=== PATIENT | male | born 1950 | race Caucasian/White ===

== ENCOUNTER → 2016-12-19 | Outpatient (CLI) | payer MEDICARE ==
[2016-12-19 17:33] LABS: Anion Gap 10 mmol/L; Blood Urea Nitrogen 32 mg/dL (9-20); Carbon Dioxide 27 mmol/L (22-30); Chloride 107 mmol/L (98-107); Non-African American GFR(MDRD) >60 (>60 ml/min/1.73 sqM); Potassium 4.7 mmol/L (3.5-5.1); Sodium 144 mmol/L (137-145)
== END | disposition home or self-care (01) ==
LOC: LABWHC1 17:02
PROVIDERS: ATTEND Nurse Practitioner Adult Health
DX: I48.2 Chronic atrial fibrillation (principal); Z51.81 Encounter for therapeutic drug level monitoring
CPT/HCPCS: 36415; 80051; 82565; 83735; 84520

== ENCOUNTER → 2017-03-08 | Outpatient (CLI) | payer MEDICARE ==
[2017-03-08 12:31] LABS: CH 29.8; CHCM 33.1; HCT 47.1 % (39.0-53.0); HDW 2.49; HGB 15.7 gm/dL (13.0-17.5); MCH 30.2 pg (25.0-35.0); MCHC 33.4 g/dL (31.0-37.0); MCV 90.4 fL (80.0-100.0); Mean Platelet Volume 7.6; RBC 5.21 m/uL (4.30-5.90); RDW 14.2 % (11.5-15.5); WBC 6.5 k/uL (3.8-10.6)
[2017-03-08 12:41] LABS: Appearance,Urine Clear (Clear); Bilirubin,Urine Negative (Negative); Glucose,Urine (UA) Negative (Negative); Ketones,Urine Negative (Negative); Leukocyte Esterase,Urine Negative (Negative); Nitrite,Urine Negative (Negative); PH, Urine 5.5 (5.0-8.0); Protein,Urine Negative (Negative); Specific Gravity,Urine 1.019 (1.001-1.035); UA Billing (MACRO vs. MICRO) CHEM; Urobilinogen,Urine <2.0 mg/dL (<2.0)
[2017-03-08 13:49] LABS: ALT 42 U/L (21-72); AST 28 U/L (17-59); Alkaline Phosphatase 70 U/L (38-126); Anion Gap 11 mmol/L; Blood Urea Nitrogen 19 mg/dL (9-20); Calcium 9.7 mg/dL (8.4-10.2); Carbon Dioxide 26 mmol/L (22-30); Chloride 107 mmol/L (98-107); Cholesterol 183 mg/dL (<200); Glucose 103 mg/dL (74-99); HDL Cholesterol 61 mg/dL (40-60); Non-African American GFR(MDRD) >60 (>60 ml/min/1.73 sqM); Potassium 4.9 mmol/L (3.5-5.1); Sodium 144 mmol/L (137-145); Total Bilirubin 0.4 mg/dL (0.2-1.3); Total Protein 7.5 g/dL (6.3-8.2); Triglycerides 133 mg/dL (<150)
[2017-03-08 14:14] LABS: Prostate Specific Antigen 1.01 ng/mL (0.00-4.00)
== END ==
LOC: LABWHC1 11:46
PROVIDERS: ATTEND Family Medicine
DX: Z00.00 Encounter for general adult medical examination without abnormal findings (principal); E78.5 Hyperlipidemia, unspecified; N40.0 Benign prostatic hyperplasia without lower urinary tract symptoms; Z79.899 Other long term (current) drug therapy
CPT/HCPCS: 36415; 80053; 80061; 81003; 83735; 84153; 84443; 85027

== ENCOUNTER → 2017-05-04 | Outpatient (CLI) | payer MEDICARE ==
[2017-05-04 18:19] LABS: Anion Gap 9 mmol/L; Blood Urea Nitrogen 21 mg/dL (9-20); Calcium 9.4 mg/dL (8.4-10.2); Carbon Dioxide 26 mmol/L (22-30); Chloride 104 mmol/L (98-107); Glucose 98 mg/dL (74-99); Magnesium 1.8 mg/dL (1.6-2.3); Non-African American GFR(MDRD) >60 (>60 ml/min/1.73 sqM); Sodium 139 mmol/L (137-145)
== END | disposition home or self-care (01) ==
LOC: LABWHC1 17:31
PROVIDERS: ATTEND Internal Medicine Clinical Cardiac Electrophysiology
DX: I10 Essential (primary) hypertension (principal); I48.1 Persistent atrial fibrillation
CPT/HCPCS: 36415; 80048; 83735

== ENCOUNTER → 2017-10-26 | Outpatient (CLI) | payer MEDICARE ==
[2017-10-26 15:04] LABS: Calcium 9.8 mg/dL (8.4-10.2); Potassium 4.8 mmol/L (3.5-5.1)
== END | disposition home or self-care (01) ==
LOC: LABWHC1 14:11
PROVIDERS: ATTEND Internal Medicine Clinical Cardiac Electrophysiology
DX: I48.1 Persistent atrial fibrillation (principal); I10 Essential (primary) hypertension
CPT/HCPCS: 36415; 80048; 83735

== ENCOUNTER → 2017-11-14 | Outpatient (CLI) | payer MEDICARE ==
[2017-11-14 10:05] LABS: ALT 35 U/L (21-72); AST 30 U/L (17-59); Anion Gap 9 mmol/L; Blood Urea Nitrogen 20 mg/dL (9-20); Calcium 9.5 mg/dL (8.4-10.2); Carbon Dioxide 29 mmol/L (22-30); Chloride 103 mmol/L (98-107); Cholesterol 188 mg/dL (<200); Glucose 118 mg/dL (74-99); HDL Cholesterol 53 mg/dL (40-60); LDL Cholesterol,Calculated 106 mg/dL (0-99); Magnesium 1.9 mg/dL (1.6-2.3); Potassium 4.5 mmol/L (3.5-5.1); Sodium 141 mmol/L (137-145); Triglycerides 143 mg/dL (<150)
== END ==
LOC: LABWHC1 09:27
PROVIDERS: ATTEND Nurse Practitioner Adult Health
DX: E78.2 Mixed hyperlipidemia (principal); I48.1 Persistent atrial fibrillation; Z51.81 Encounter for therapeutic drug level monitoring
CPT/HCPCS: 36415; 80048; 80061; 83735; 84450; 84460

== ENCOUNTER → 2018-05-25 | Outpatient (CLI) | payer MEDICARE ==
[2018-05-25 16:14] LABS: Calcium 9.7 mg/dL (8.4-10.2); Magnesium 2.3 mg/dL (1.6-2.3)
[2018-05-25 16:15] LABS: Potassium 4.5 mmol/L (3.5-5.1)
== END | disposition home or self-care (01) ==
LOC: LABWHC1 15:21
PROVIDERS: ATTEND Internal Medicine Clinical Cardiac Electrophysiology
DX: I48.91 Unspecified atrial fibrillation (principal); I10 Essential (primary) hypertension; E78.5 Hyperlipidemia, unspecified
CPT/HCPCS: 36415; 80048; 80061; 83735

== ENCOUNTER → 2018-11-30 | Outpatient (CLI) | payer MEDICARE ==
[2018-11-30 08:40] LABS: HCT 47.4 % (39.0-53.0); HGB 15.2 gm/dL (13.0-17.5); MCH 29.1 pg (25.0-35.0); MCHC 32.1 g/dL (31.0-37.0); MCV 90.8 fL (80.0-100.0); Mean Platelet Volume 7.2; Platelet Count 181 k/uL (150-450); RBC 5.22 m/uL (4.30-5.90); RDW 13.4 % (11.5-15.5); WBC 6.2 k/uL (3.8-10.6)
[2018-11-30 08:47] LABS: INR 1.1 (<1.2); Prothrombin Time 11.8 sec (9.0-12.0)
[2018-11-30 17:09] LABS: Anion Gap 7.8 mmol/L (4.00-12.00); Calcium 9.7 mg/dL (8.7-10.3); Carbon Dioxide 24.2 mmol/L (21.6-31.8); Magnesium 1.7 mg/dL (1.5-2.4); Potassium 4.6 mmol/L (3.5-5.5)
== END | disposition home or self-care (01) ==
LOC: LABWHC1 08:02
PROVIDERS: ATTEND Internal Medicine Clinical Cardiac Electrophysiology
DX: I48.91 Unspecified atrial fibrillation (principal); I10 Essential (primary) hypertension; E78.5 Hyperlipidemia, unspecified
CPT/HCPCS: 36415; 80048; 80061; 83735; 84450; 84460; 85027; 85610

== ENCOUNTER → 2019-01-28 | Outpatient (CLI) | payer MEDICARE ==
[2019-01-28 10:32] LABS: Potassium 5.2 mmol/L (3.5-5.1)
== END | disposition home or self-care (01) ==
LOC: LABPAT 09:16
PROVIDERS: ATTEND Internal Medicine Clinical Cardiac Electrophysiology
DX: Z01.812 Encounter for preprocedural laboratory examination (principal); I48.1 Persistent atrial fibrillation
CPT/HCPCS: 80051; 82565; 82947; 84520

== ENCOUNTER → 2019-01-31 | Day surgery (SDC) | payer MEDICARE ==
[2019-01-25 14:13] VITALS: BMI 26.9
[~2019-01-31] MED LIST: SODIUM CHLORIDE 0.9% 1,000 ML IV SCH
[2019-01-31 06:49] VITALS: BP 141/86; PULSE 57; RESP 18; TEMP 98.1
--- NOTE | 2019-01-31 08:24 | P.PCN ---
Preoperative Diagnosis: Diagnosis Persistent symptomatic atrial fibrillation, failed dofetilide 375 g twice daily Patient brought in for electrical cardioversion since he was symptomatic with atrial fibrillation Twelve-lead ECG prior to the cardioversion showed a the patient had converted to sinus rhythm Lead ECG shows sinus rhythm normal MA QRS normal ST segments QT interval 480 ms, absolute Patient is feeling well today he feels better Suggest Atrial current medications without any changes including Xarelto 20 mg by mouth daily number dofetilide 375 g twice daily, beta blockers spironolactone Slow- Mag Plan Since the patient is symptomatic today's electrical cardioversion was canceled but I have recommended that he proceed with an A. fib ablation When he is back lipid performed a pulmonary vein isolation his atrium was significantly enlarged at about 6 cm and the esophagus was very difficult to deflected off safely. Therefore pulmonary isolation was left in complete for risk of injury to the esophagus I would recommend that he proceed with cryoablation to complete the pulmonary vein isolation now and perform linear ablation at the roof I plan to continue dofetilide maintains sinus rhythm since he is quite symptomatic during atrial fibrillation
== END | disposition home or self-care (01) ==
LOC: CATHEP 06:24
PROVIDERS: ATTEND Internal Medicine Clinical Cardiac Electrophysiology
DX: I48.1 Persistent atrial fibrillation (principal); E78.5 Hyperlipidemia, unspecified; I10 Essential (primary) hypertension; I73.9 Peripheral vascular disease, unspecified; I49.5 Sick sinus syndrome; Z51.81 Encounter for therapeutic drug level monitoring; Z82.49 Family history of ischemic heart disease and other diseases of the circulatory system; Z72.0 Tobacco use; Z79.01 Long term (current) use of anticoagulants; Z79.899 Other long term (current) drug therapy; Z53.8 Procedure and treatment not carried out for other reasons

== ENCOUNTER 2019-03-28 09:29 | Day surgery (SDC) | payer MEDICARE ==
[2019-03-22 10:33] VITALS: BMI 26.6
[2019-03-28] MEDS: SODIUM CHLORIDE 0.9% 1,000 ML IV SCH (10:06)
[2019-03-28 10:14] LABS: African American GFR (CKD) >90 (>60 ml/min/1.73 sqM); Anion Gap 9 mmol/L; Blood Urea Nitrogen 18 mg/dL (9-20); Calcium 9.4 mg/dL (8.4-10.2); Carbon Dioxide 24 mmol/L (22-30); Chloride 107 mmol/L (98-107); Glucose 130 mg/dL (74-99); Non-African American GFR(CKD) 85 (>60 ml/min/1.73 sqM); Potassium 4.5 mmol/L (3.5-5.1); Sodium 140 mmol/L (137-145)
[2019-03-28 10:18] LABS: Basophils # (A) 0.1 k/uL (0-0.2); Basophils % (A) 1 %; Eosinophils # (A) 0.6 k/uL (0-0.7); Eosinophils % (A) 11 %; HCT 45.9 % (39.0-53.0); HGB 15.5 gm/dL (13.0-17.5); Lymphocytes # (A) 1.5 k/uL (1.0-4.8); Lymphocytes % (A) 27 %; MCH 30.4 pg (25.0-35.0); MCHC 33.9 g/dL (31.0-37.0); MCV 89.6 fL (80.0-100.0); Mean Platelet Volume 7.6; Monocytes # (A) 0.4 k/uL (0-1.0); Monocytes % (A) 8 %; Neutrophils # (A) 2.8 k/uL (1.3-7.7); Neutrophils % (A) 51 %; Platelet Count 171 k/uL (150-450); RBC 5.12 m/uL (4.30-5.90); RDW 15.7 % (11.5-15.5); WBC 5.5 k/uL (3.8-10.6)
[2019-03-28] MEDS ORDERED: FUROSEMIDE 10 MG/ML 2 ML VIAL ONE (10:41)
[2019-03-28] MEDS ORDERED: SUCCINYLCHOLINE CHLORIDE 100 MG/5 ML SYR IV ONE (10:41)
[2019-03-28] MEDS ORDERED: ONDANSETRON 4 MG/2 ML VIAL ONE (10:41)
[2019-03-28] MEDS ORDERED: HEPARIN SODIUM,PORCINE 5,000 UNIT/ML 1 ML VIAL ONE (10:41)
[2019-03-28] MEDS ORDERED: ATROPINE SULFATE 0.1 MG/ML 10ML SYRINGE ONE (10:41)
[2019-03-28] MEDS ORDERED: PROTAMINE SULFATE 10 MG/ML 5 ML VIAL IV ONE ×2 (10:41→15:45)
[2019-03-28] MEDS ORDERED: GLYCOPYRROLATE 0.2 MG/ML 2 ML VIAL ONE (10:41)
[2019-03-28] MEDS ORDERED: MIDAZOLAM 2 MG/2 ML VIAL ONE (10:41)
[2019-03-28] MEDS ORDERED: PROPOFOL 10 MG/ML 20 ML VIAL IV ONE (10:41)
[2019-03-28] MEDS ORDERED: PHENYLEPHRINE-0.9% NACL SYG 1 MG/10 ML SYRINGE ONE (10:41)
[2019-03-28] MEDS ORDERED: fentaNYL (PF) 50 MCG/ML 2 ML AMP ONE (10:41)
[2019-03-28] MEDS ORDERED: ISOPROTERENOL 250 MCG/1.25 ML SYR IV ONE (10:41)
[2019-03-28] MEDS ORDERED: HEPARIN SOD,PORK IN 0.45% NACL 25,000 UNIT in 0.45% NACL 1 250ML.BAG IV ONE (11:18)
--- NOTE | 2019-03-28 11:49 | HP ---
HISTORY AND PHYSICAL Don Pelaez is a 68-year-old male patient who has a history of persistent atrial fibrillation and has undergone atrial fibrillation ablation over 7 to 8 years back. At that time, we were unable to isolate the left-sided veins on account of the proximity of the esophagus. Esophageal deflection was very difficult. He had an extremely left- sided esophagus. Tip of the posterior wall of the left-sided veins was not ablated to avoid risk of the esophageal injury. He was treated with dofetilide and did very well for many, many years. He started having episodes of palpitations and subsequently had symptomatic atrial fibrillation with fatigue. He underwent electrical cardioversion for this. He has been brought back for an atrial fibrillation ablation with PVI using cryoablation and a diagnostic EP study thereafter for atrial tachycardia. He does have mild sinus bradycardia with underlying chronotropic incompetence, but does not have any significant symptoms in sinus rhythm. He feels well during sinus rhythm. He is on dofetilide. His absolute QT interval is 487 milliseconds. PAST HISTORY: Past history of dyslipidemia and hypertension. He is a former smoker. His 2D echo has shown significantly dilated left atrium with preserved LV systolic function. He has also had nonsustained ventricular tachycardia, a 4-beat run, on Holter monitor as well as mild sick sinus syndrome. His stress test in the past has been within normal limits. MEDICATIONS: His medications include Slow-Mag, Flomax, dofetilide 375 mcg twice daily, Aldactone, , low-dose atenolol. ALLERGIES: No known drug allergies. REVIEW OF SYSTEMS: He denies any fever, chills, or rigors. He denies any cough, expectoration, phlegm pneumonitis, bronchitis. No urinary tract infection. No dysuria. No abdominal pain. He does complain of dizziness upon standing quickly, but no loss of consciousness. No chest discomfort. No undue shortness of breath. No hematuria or dysuria. No strokes, seizures. No skin lesions. No musculoskeletal complaints. PHYSICAL EXAMINATION: On examination, his blood pressure is 137/80 mmHg. Heart rates are in the 50s, sinus mechanism. Head and neck examination is normal. No JVD. Breath sounds are clear. No rhonchi, no crackles. Heart sounds show normal S1, normal S2 with a soft ejection systolic murmur. Abdomen is soft, nontender. Extremities are warm. No edema. IMPRESSION: 1. History of persistent atrial fibrillation now with breakthrough episodes of atrial fibrillation on dofetilide. 2. Stable from a cardiovascular standpoint. 3. Stable from medical standpoint to proceed with atrial fibrillation ablation under the general anesthesia. 4. Hypertension. He is on uninterrupted Xarelto. MMODL / IJN: [id number] /
[2019-03-28] MEDS ORDERED: LIDOCAINE 1% INJ 10MG/ML (20 ML MDV) SQ ONE (11:59)
[2019-03-28] MEDS ORDERED: HEPARIN SODIUM (1,000 UNIT/ML) 1,000 UNIT in SODIUM CHLORIDE 0.9% 1,000 ML IRRIGATION ONE (15:56)
[2019-03-28] MEDS ORDERED: IOPAMIDOL-370 100ML BTL INJ ONE (15:56)
[2019-03-28] MEDS ORDERED: HYDROcodone/APAP 5-325MG 1 EACH TAB PO PRN ×2 (16:42→18:32)
[2019-03-28] MEDS ORDERED: ACETAMINOPHEN TAB 325 MG TAB PO PRN (16:42)
--- NOTE | 2019-03-28 16:56 | P.PCN ---
Preoperative Diagnosis: Diagnosis Atrial fibrillation, symptomatic, refractory to therapy, persistent, failed dofetilide Result Successful pulmonary vein isolation of all veins using cryo-ablation Complete entrance block in all 4 veins confirmed Ablation along the left atrial roof Linear ablation along the anterior wall of the left atrium Ablation of the fossa ovalis, fractionated signals No evidence for phrenic nerve injury Esophageal deflection YES Electrical cardioversion with a synchronized shock across the chest NO Procedure details Patient was brought to the EP lab in a fasting state. Written informed consent was obtained prior to the procedure. Procedure performed under general anesthesia After initial muscle relaxant use, muscle relaxants were not given thereafter in order to assess phrenic nerve during procedure. Patient prepped and draped as per protocol Full cryo-set up with standard preparation of the cryoablation tools done. Femoral Venous access obtained on the right and left groins Venous and arterial Sheaths placed. Diagnostic catheters for the high right atrium, phrenic nerve stimulation and pacing, His bundle, RV and coronary sinus placed Intracardiac echo catheter placed. Long sheath placed in the right atrium Left and right transseptal catheterization performed under intracardiac echo guidance. Intravenous heparin with aCT above 300 Later, catheter positioning and balloon positioning in the left atrium, under intracardiac echo guidance Diagnostic EP study with Drug infusion Coronary sinus pacing and recording Baseline measurements Sinus cycle length 1224, MT interval 172, QRS 121, QT 500 Atrial pacing performed from the high right atrium and the coronary sinus RV pacing Sinus recovery 600, 540 ms were 898, 879 and 63 ms AV node Wenckebach block 650 ms Atrial extra stimulation from the high right atrium Extra stimulation from the coronary sinus Transseptal catheterization performed RA pressure 10/4/7 LA pressure 16/5/9 Transseptal catheterization performed with standard sheath. The cryoablation sheath was then placed with an over the wire exchange without any acute complications. All 4 pulmonary veins were isolated in the following sequence: Left superior followed by left inferior followed by right superior followed by right inferior The cryo-ablation balloon was placed at the os of each vein 1.5 mL of IV dye was injected to confirm an occluded vein Goal during cryoablation was to achieve complete occlusion of the pulmonary vein, achieve -30 degrees C at 30 seconds and achieve -40 degrees C at 60 seconds and a time to effect of less than 60-90 seconds, . If not the balloon was repositioned to obtain this result After completion of Cryoblation with durations from 180-240 seconds, entrance block was confirmed with the Attain circular catheter in a roving fashion around the antrum of the pulmonary veins Phrenic nerve pacing was performed from the SVC, right innominate vein area and diaphragm voltage was monitored. Diaphragmatic contractions were also monitored manually for strength of contraction. Parameter goals for each cryo freeze Complete occlusion of the appropriate vein -30 degrees C by 30 seconds -40 degrees C by 60 seconds Minimum between minus 40-55 degrees C Thaw time greater than 10 seconds Balloon visualized by intracardiac echo The esophagus was intubated. Esophageal Temperature monitoring with a CIRCA catheter formed. Esophageal deflection for hypothermia of the esophagus below 30 degrees C Left superior pulmonary vein Complete isolation, entrance block Left inferior pulmonary vein Complete isolation, entrance block Right superior pulmonary vein, during phrenic nerve pacing Complete isolation, entrance block Right inferior pulmonary vein, during phrenic nerve pacing Complete isolation, entrance block At the end of the procedure the Achieve catheter was once again used to check for entrance block Phrenic nerve stimulation was performed to confirm diaphragmatic stimulation the end of the procedure Cine fluoroscopy was performed at the very end of the procedure to confirm movement of both diaphragms with inspiration and expiration At the end of the procedure the patient was extubated Heparin was reversed Venous sheaths were removed and hemostasis assured Procedures performed (PVI - CRYO Ablation) Invasive hemodynamic monitoring while general anesthesia, right femoral arterial line for monitoring and sampling Diagnostic EP study CS pacing and recording Left and right transseptal catheterization Catheter the mapping of the tachycardia (NOT 3D mapping) Intracardiac echocardiography Pulmonary vein isolation with transseptal and comprehensive EPS, 09871 Left atrial roof line, +02100 Linear ablation along the anterior wall from the base of the left great appendage to the anterior aspect of the right superior pulmonary vein Linear ablation along the anterior septum to the fossa ovalis and then to the right inferior pulmonary vein Electrical cardioversion with a synchronized shock across the chest 05617 Drug Infusion +51645 On Isuprel with atrial extra stimulation from the coronary sinus@400\370 ms an atrial tachycardia was induced with W-shaped P waves in V1 and somewhat negative in the inferior leads Sustained but terminated spontaneously Slight irregularity and radiation in the intracardiac electrograms Cycle length of about 254 ms Likely originating in the right atrium Tachycardia spontaneously terminated before mapping could be performed
[2019-03-28] MEDS: LACTATED RINGERS 1,000 ML IV SCH (17:15)
[2019-03-28] MEDS ORDERED: ACETAMINOPHEN IV (For NPO) 1,000 MG in EMPTY BAG 1 BAG IVPB ONE (18:00)
[2019-03-28] MEDS ORDERED: HYDROcodone/APAP 5-325MG 1 EACH TAB PO STA (18:31)
[2019-03-28] MEDS ORDERED: HYDROmorphone 0.5 MG/0.5 ML SYRINGE IVP PRN (18:31)
[2019-03-28] MEDS ORDERED: SPIRONOLACTONE 25 MG TAB PO SCH (21:00)
[2019-03-28] MEDS ORDERED: ATORVASTATIN 40 MG TAB PO SCH (21:00)
[2019-03-28] MEDS ORDERED: NAPROXEN 250 MG TAB PO SCH (21:00)
[2019-03-28] MEDS ORDERED: TAMSULOSIN 0.4 MG CAP.ER.24H PO SCH (21:00)
[2019-03-28] MEDS ORDERED: RIVAROXABAN 20 MG TAB PO SCH (21:00)
[2019-03-28] MEDS: DOFETILIDE 250 MCG CAP PO SCH (21:12)
[2019-03-28] MEDS: DOFETILIDE 125 MCG CAP PO SCH (21:12)
[2019-03-29] MEDS: LACTATED RINGERS 1,000 ML IV SCH (07:29)
[2019-03-29] MEDS: SODIUM CHLORIDE 0.9% 1,000 ML IV SCH (07:29)
[2019-03-29 07:38] VITALS: BP 121/73; PULSE 58; RESP 16; TEMP 98.3
[2019-03-29] MEDS: DOFETILIDE 250 MCG CAP PO SCH (08:20)
[2019-03-29] MEDS: DOFETILIDE 125 MCG CAP PO SCH (08:20)
[2019-03-29] MEDS ORDERED: MAGNESIUM OXIDE 400 MG TAB PO SCH (09:00)
--- NOTE | 2019-03-29 09:20 | P.DS ---
<Destiny Degroot - Last Filed: 03/29/19 08:56> Hospital Course: Patient is a 68-year-old male with past medical history of hypertension, dysl ipidemia, and persistent symptomatic atrial fibrillation who presented for an atrial fibrillation ablation. He underwent atrial fibrillation ablation in the past but pulmonary vein isolation could not be achieved due to difficulty deflecting his esophagus. He has been treated with dofetilide but has started having breakthrough episodes of palpitations and symptoms of fatigue so he was brought back for another ablation. Yesterday, He underwent successful pulmonary vein isolation as well as linear ablation along the left atrial roof, anterior wall left atrium, as well as the anterior septum. He underwent subsequent electrical cardioversion and an EP study which showed an atrial tachycardia which spontaneously terminated. patient seen and examined resting in bed. Today he feels well. No acute events overnight. He is complaining of a mild sore throat but no dysphagia. Denies any shortness of breath, orthopnea, PND, or chest pain. Has been able to get up and walk around without any dizziness, lightheadedness or syncope. EKG showed sinus mechanism with absolute QT less than 450 ms WBC 5.5, hemoglobin 15.5, platelets 171, potassium 4.5, BUN 18, creatinine 0.92 Temperature 98.3F, pulse 58, respirations 16, blood pressure 121/73, oxygen saturation 95% on room air Patient seen and examined resting comfortably in bed Lungs are clear to auscultation bilaterally Heart is regular, normal S1-S2, no murmurs appreciated No lower extremity edema Bilateral groins healing well, sutures have been removed, no hematomas Impression Symptomatic persistent Atrial fibrillation status post atrial fibrillation ablation, currently in sinus rhythm Evidence of sick sinus syndrome, he had some episodes of bradycardia during the procedure requiring atropine Hypertension Dyslipidemia History of Sleep apnea, was on CPAP at in the past but his insurance discontinued it because he was not using it enough Plan Hold off on atenolol for now to avoid bradycardia, consider using it on a when n ecessary basis if he goes back into atrial fibrillation with RVR Continue current dose of dofetilide in all other cardiac medications including anticoagulation with Xarelto Given referral to Dr. Ruffin for sleep apnea management follow up with Dr. Spring/Destiny Degroot/Amina Humphreys in one to 2 weeks Plan - Discharge Summary Discharge Rx Participant: No New Discharge Prescriptions: Continue Ibuprofen/Diphenhydramine HCl [Advil Pm Liqui-Gels] 1 each PO HS Tamsulosin HCl [Flomax] 0.8 mg PO HS Magnesium Oxide [Mag-Ox] 250 mg PO DAILY Atorvastatin [Lipitor] 40 mg PO HS Spironolactone [Aldactone] 25 mg PO HS Rivaroxaban [Xarelto] 20 mg PO HS Dofetilide [Tikosyn] 250 mcg PO Q12HR Dofetilide [Tikosyn] 125 mcg PO Q12HR Naproxen Sodium [Aleve] 220 mg PO HS Discontinued Atenolol [Tenormin] 12.5 mg PO DAILY Discharge Medication List Atorvastatin [Lipitor] 40 mg PO HS 01/25/19 [History] Dofetilide [Tikosyn] 125 mcg PO Q12HR 01/25/19 [History] Dofetilide [Tikosyn] 250 mcg PO Q12HR 01/25/19 [History] Ibuprofen/Diphenhydramine HCl [Advil Pm Liqui-Gels] 1 each PO HS 01/25/19 [History] Magnesium Oxide [Mag-Ox] 250 mg PO DAILY 01/25/19 [History] Naproxen Sodium [Aleve] 220 mg PO HS 01/25/19 [History] Rivaroxaban [Xarelto] 20 mg PO HS 01/25/19 [History] Spironolactone [Aldactone] 25 mg PO HS 01/25/19 [History] Tamsulosin HCl [Flomax] 0.8 mg PO HS 01/25/19 [History] Follow up Appointment(s)/Referral(s): Larry Spring MD [STAFF PHYSICIAN] - 04/10/19 11:30 am Activity/Diet/Wound Care/Special Instructions: Post EP study - Ablation instructions 1. Keep access sites dry for 2 days. 2. No heavy lifting or straining for 2 days. 3. Avoid bending the hips repeatedly for 2 days. 4. You may go up and down stairs slowly Call if the following is noted 1. Bleeding, increasing swelling or pain at the access sites. 2. Increasing chest discomfort, especially upon taking a deep breath. 3. Increasing shortness of breath, at rest or with exertion. 4. Undue cough / phlegm 5. Difficulty or pain while swallowing. 6. Pain or change in color in the extremities. 7. Fever, chills, rigors. 8. Increasing headache or neurologic symptoms. 9. Dizziness, fainting, palpitations Hold atenolol, continue all other cardiac medications including xarelto Follow-up with Dr. Spring/Destiny Degroot/Amina Humphreys, 1-2 weeks Discharge Disposition: HOME SELF-CARE <Larry Spring - Last Filed: 03/29/19 12:02> Providers Attending physician: Larry Spring Primary care physician: [facility] Hospital Course: Cryoablation of the pulmonary veins with antral ablation Linear ablation along the roof of the left atrium Anterior LA wall ablation Left atrial septal wall ablation and fossa ovalis ablation Residual right atrial tachycardia to 54 ms cycle length, W shaped P waves in V1, induced with atrial extra stimulation from the coronary sinus was single extra stimuli, on high-dose Isuprel Terminated spontaneously, was not mapped
== END 2019-03-29 11:20 | disposition home or self-care (01) ==
LOC: CATHEP 09:29 → 1SOBS 15:34 → CATHEP 03-29 11:20
PROVIDERS: ATTEND Internal Medicine Clinical Cardiac Electrophysiology
DX: I48.1 Persistent atrial fibrillation (principal); I49.5 Sick sinus syndrome; I10 Essential (primary) hypertension; E78.5 Hyperlipidemia, unspecified; Z87.891 Personal history of nicotine dependence; G47.30 Sleep apnea, unspecified; Z79.01 Long term (current) use of anticoagulants; Z79.1 Long term (current) use of non-steroidal anti-inflammatories (NSAID); Z79.899 Other long term (current) drug therapy
CPT/HCPCS: 85347; 92960; 93623; 93662; 93609; 93656; 80048; 85025; C1769 ×4; C1894 ×2; C1730 ×2; C1731; C1759; C1893; C1733; C1766; C1732; J2250; J2720; J1644 ×3; J1940; J2405; J2001; J0461; J3010; J2370; J0330; J2704; J1170; Q9967

== ENCOUNTER → 2019-07-15 | Outpatient (CLI) | payer MEDICARE ==
[2019-07-16 00:20] LABS: Anion Gap 8.8 mmol/L (4.00-12.00); Calcium 9.3 mg/dL (8.7-10.3); Carbon Dioxide 26.2 mmol/L (21.6-31.8); Non-African American GFR(CKD) 75.9 (60.0-200.0); Potassium 4.9 mmol/L (3.5-5.5)
== END | disposition home or self-care (01) ==
LOC: LABWHC1 16:14
PROVIDERS: ATTEND Internal Medicine Clinical Cardiac Electrophysiology
DX: I48.91 Unspecified atrial fibrillation (principal); Z79.899 Other long term (current) drug therapy
CPT/HCPCS: 36415; 80048; 83735

== ENCOUNTER → 2019-08-29 | Outpatient (CLI) | payer MEDICARE ==
[2019-08-29 11:17] LABS: HCT 46.7 % (39.0-53.0); HGB 15.3 gm/dL (13.0-17.5); MCH 29.5 pg (25.0-35.0); MCHC 32.8 g/dL (31.0-37.0); MCV 89.8 fL (80.0-100.0); Platelet Count 191 k/uL (150-450); RDW 12.9 % (11.5-15.5); WBC 5.3 k/uL (3.8-10.6)
[2019-08-29 11:47] LABS: Appearance,Urine Clear (Clear); Bilirubin,Urine Negative (Negative); Blood,Urine Negative (Negative); Color,Urine Yellow; Glucose,Urine (UA) Negative (Negative); Ketones,Urine Negative (Negative); Leukocyte Esterase,Urine Negative (Negative); Nitrite,Urine Negative (Negative); PH, Urine 5.5 (5.0-8.0); Protein,Urine Negative (Negative); Specific Gravity,Urine 1.023 (1.001-1.035); Urobilinogen,Urine <2.0 mg/dL (<2.0)
[2019-08-29 17:26] LABS: African American GFR (CKD) 78.4 (60.0-200.0); Albumin 4.6 g/dL (3.80-4.90); Albumin/Globulin Ratio 1.84 (1.60-3.17); Anion Gap 10.2 mmol/L (4.00-12.00); BUN/Creat Ratio 19.09 Ratio (12.00-20.00); Calcium 9.3 mg/dL (8.7-10.3); Carbon Dioxide 23.8 mmol/L (21.6-31.8); Chol/HDL Ratio 3.67; Globulin 2.5 g/dL (1.6-3.3); LDL Cholesterol,Calculated 102.2 mg/dL (0.0-131.0); Magnesium 1.8 mg/dL (1.5-2.4); Non-African American GFR(CKD) 67.7 (60.0-200.0); Potassium 4.6 mmol/L (3.5-5.5); Total Bilirubin 0.6 mg/dL (0.3-1.2); Total Protein 7.1 g/dL (6.2-8.2); VLDL Calculation 25.8 mg/dL (5.00-40.00)
[2019-08-29 17:36] LABS: T4, Free (Free Thyroxine) 1.1 ng/dL (0.80-1.80)
[2019-08-29 18:37] LABS: Hemoglobin A1C 5.6 % (4.0-6.0)
== END | disposition home or self-care (01) ==
LOC: LABWHC1 10:21
PROVIDERS: ATTEND Family Medicine
DX: I10 Essential (primary) hypertension (principal); Z00.01 Encounter for general adult medical examination with abnormal findings; N40.1 Benign prostatic hyperplasia with lower urinary tract symptoms; E66.3 Overweight
CPT/HCPCS: 36415; 80053; 80061; 81003; 83036; 83735; 84153; 84439; 84443; 85027

== ENCOUNTER → 2019-08-29 | Outpatient (CLI) | payer MEDICARE ==
--- NOTE | 2019-08-29 19:48 | CONS ---
CONSULTATION DATE OF SERVICE: 08/29/2019 This patient is a 69-year-old gentleman who has been evaluated in the sleep center for obstructive sleep apnea-hypopnea syndrome. HISTORY OF PRESENT ILLNESS/SLEEP-WAKE EVALUATION: Patient was diagnosed with sleep apnea about 15 years ago and was started on treatment with CPAP but for different reasons, treatment with CPAP was stopped at that time. At present his sleep schedule on weekdays is from 11 p.m. to 6:15 a.m. and on weekends from around midnight until 8 a.m. Sometimes he has problems with falling asleep, but usually not for more than 30 minutes. He has a TV set in the bedroom. He sleeps on the side position with loud snoring, witnessed episodes of stopped breathing during sleep. During the night the patient wakes up 3 times with nocturia, grinding teeth and heartburn. In the morning, the patient wakes up tired, falling asleep during the day, worries about his sleep. [place] Sleepiness Scale is significantly increased at 15. PAST MEDICAL HISTORY: Positive for atrial fibrillation, BPH, hyperlipidemia. PAST SURGICAL HISTORY: Cardiac ablation, bilateral surgery for carpal tunnel syndrome, adenoidectomy, bilateral knee surgery. SOCIAL HISTORY: Positive for smoking for about 5 pack/years; quit about 30 years ago. Alcohol consumption occasional. FAMILY HISTORY: Hypertension, heart problems, hyperlipidemia, sleep apnea, acid reflux. REVIEW OF SYSTEMS: Multiple awakenings from sleep, tiredness and sleepiness during the day. PHYSICAL EXAMINATION: GENERAL: A pleasant gentleman without distress. VITAL SIGNS: BP 128/81, HR 62, RR 16, height 5 feet 9 inches, weight 194 pounds. Body mass index 28.6. Temperature 98.8, oxygen saturation at room air 96%. HEENT: PERRLA, EOMI. Evaluation of oropharynx showed tongue protrudes midline. Extremely low position of soft palate. Mallampati IV. Restriction of nasal breathing. NECK: Supple. No JVD. Thyroid is not palpable. Neck measures 16-1/4 inches in circumference. LUNGS: Clear to percussion and to auscultation. Good air exchange. No wheezing or rhonchi. HEART: S1, S2 regular. No murmurs, gallops or rubs. ABDOMEN: Soft. No tenderness. EXTREMITIES: No clubbing or cyanosis. BOX STRAPPER: Awake, alert, and oriented X3. Cranial nerves 2 to 7 intact. There is no fasciculation or atrophy. noted. No focal deficits observed. IMPRESSION: 1. Loud snoring, witnessed episodes of stopped breathing during sleep, extremely low position of soft palate, sleepiness; obstructive sleep apnea-hypopnea syndrome. Patient presented with symptoms of excessive daytime sleepiness. [place] Sleepiness Scale is 15. 2. History of atrial fibrillation, status post two ablation procedures. 3. History of benign prostatic hypertrophy. 4. Hyperlipidemia. PLAN: 1. Polysomnography for evaluation of patient's breathing during sleep. 2. CPAP/BiPAP titration if sleep study confirms obstructive sleep apnea-hypopnea syndrome. 3. Preferable position during sleep on the side. 4. No driving if patient feels any sleepiness. 5. I will see patient for follow up visit to explain results of testing and following plan. Thank you very much for referring this patient for consultation. Sincerely, Ashok Ruffin MD, PhD, FAASM Diplomat of [place] [employer] [place] [employer] [facility] [place] MMODL / IJN: [id number] /
== END | disposition home or self-care (01) ==
LOC: SLEEP 16:13
PROVIDERS: ATTEND Internal Medicine
DX: G47.33 Obstructive sleep apnea (adult) (pediatric) (principal); E78.5 Hyperlipidemia, unspecified; Z86.79 Personal history of other diseases of the circulatory system; Z87.438 Personal history of other diseases of male genital organs; Z83.6 Family history of other diseases of the respiratory system; Z87.891 Personal history of nicotine dependence; Z98.890 Other specified postprocedural states
CPT/HCPCS: 99211

== ENCOUNTER → 2020-06-18 | Outpatient (CLI) | payer MEDICARE ==
[2020-06-19 01:29] LABS: African American GFR (CKD) 87.4 (60.0-200.0); Anion Gap 7.3 mmol/L (4.00-12.00); Calcium 9.1 mg/dL (8.7-10.3); Carbon Dioxide 28.7 mmol/L (21.6-31.8); Non-African American GFR(CKD) 75.4 (60.0-200.0); Potassium 4.8 mmol/L (3.5-5.5)
== END | disposition home or self-care (01) ==
LOC: LABWHC1 16:24
PROVIDERS: ATTEND Physician Assistant
DX: I48.91 Unspecified atrial fibrillation (principal)
CPT/HCPCS: 36415; 80048; 83735

== ENCOUNTER → 2020-12-28 | Outpatient (CLI) | payer MEDICARE ==
[2020-12-29 02:54] LABS: African American GFR (CKD) 87.4 (60.0-200.0); Anion Gap 8.7 mmol/L (4.00-12.00); Calcium 8.8 mg/dL (8.7-10.3); Carbon Dioxide 26.3 mmol/L (21.6-31.8); Chol/HDL Ratio 3.38; LDL Cholesterol,Calculated 69.2 mg/dL (0.0-131.0); Magnesium 1.9 mg/dL (1.5-2.4); Non-African American GFR(CKD) 75.4 (60.0-200.0); Potassium 4.6 mmol/L (3.5-5.5); VLDL Calculation 37.8 mg/dL (5.00-40.00)
== END | disposition home or self-care (01) ==
LOC: LABWHC1 16:15
PROVIDERS: ATTEND Internal Medicine Clinical Cardiac Electrophysiology
DX: I48.91 Unspecified atrial fibrillation (principal); I49.5 Sick sinus syndrome; E78.5 Hyperlipidemia, unspecified
CPT/HCPCS: 36415; 80048; 80061; 83735; 84443

== ENCOUNTER → 2021-06-25 | Outpatient (CLI) | payer MEDICARE ==
[2021-06-25 16:33] LABS: African American GFR (CKD) 86.8 (60.0-200.0); Blood Urea Nitrogen 23.5 mg/dL (9.0-27.0); Calcium 9.5 mg/dL (8.7-10.3); Carbon Dioxide 22.5 mmol/L (21.6-31.8); Chloride 104 mmol/L (96-109); Chol/HDL Ratio 3.12 Ratio; Glucose 114 mg/dL (70-110); LDL Cholesterol,Calculated 85.6 mg/dL (0.0-131.0); Magnesium 1.8 mg/dL (1.5-2.4); Non-African American GFR(CKD) 74.9 (60.0-200.0); Potassium 4.4 mmol/L (3.5-5.5); Sodium 140 mmol/L (135-145); VLDL Calculation 19.02 mg/dL (5.00-40.00)
== END | disposition home or self-care (01) ==
LOC: LABWHC1 06-16 11:21
PROVIDERS: ATTEND Nurse Practitioner Adult Health
DX: Z51.81 Encounter for therapeutic drug level monitoring (principal); I48.19 Other persistent atrial fibrillation; E78.5 Hyperlipidemia, unspecified; I49.5 Sick sinus syndrome
CPT/HCPCS: 36415; 80048; 80061; 83735; 84443

== ENCOUNTER → 2021-12-28 | Outpatient (CLI) | payer MEDICARE ==
[2021-12-28 18:48] LABS: African American GFR (CKD) 90.9 (60.0-200.0); Anion Gap 8.6 mmol/L (10.00-18.00); BUN/Creat Ratio 19.23 Ratio (12.00-20.00); Blood Urea Nitrogen 18.5 mg/dL (9.0-27.0); Calcium 9.2 mg/dL (8.7-10.3); Carbon Dioxide 26.7 mmol/L (20.0-27.5); Magnesium 2.2 mg/dL (1.5-2.4); Non-African American GFR(CKD) 78.5 (60.0-200.0); Potassium 5.1 mmol/L (3.5-5.5)
== END | disposition home or self-care (01) ==
LOC: LABWHC1 13:03
PROVIDERS: ATTEND Nurse Practitioner Adult Health
DX: I10 Essential (primary) hypertension (principal)
CPT/HCPCS: 36415; 80048; 83735

== ENCOUNTER 2022-06-14 11:56 | Outpatient (CLI) | payer MEDICARE | END 2022-06-14 12:03 | disposition home or self-care (01) | LOC: LABWHC1 11:56 | PROVIDERS: ATTEND Internal Medicine Clinical Cardiac Electrophysiology | DX: Z53.9 Procedure and treatment not carried out, unspecified reason (principal) ==

== ENCOUNTER → 2022-06-14 | Outpatient (CLI) | payer MEDICARE ==
[2022-06-14 18:00] LABS: HCT 46.2 % (39.6-50.0); HGB 14.5 g/dL (13.0-17.0); MCH 28.8 pg (27.0-32.0); MCHC 31.4 g/dL (32.0-37.0); MCV 91.8 fL (80.0-97.0); Mean Platelet Volume 10.1 fL (9.5-12.2); NRBC Per 100 WBC 0 /100 WBCS (0.0-0.0); Platelet Count 176 X 10*3/uL (140-440); RBC 5.03 X 10*6/uL (4.40-5.60); RDW 13.7 % (11.5-14.5); WBC 6.75 X 10*3/uL (4.50-10.00)
[2022-06-14 18:48] LABS: ALT 22 U/L (10-49); AST 18 U/L (14-35); African American GFR (CKD) 86.2 (60.0-200.0); Albumin 4.3 g/dL (3.8-4.9); Albumin/Globulin Ratio 1.79 (1.60-3.17); Alkaline Phosphatase 69 U/L (41-126); Blood Urea Nitrogen 21.5 mg/dL (9.0-27.0); Calcium 9.7 mg/dL (8.7-10.3); Carbon Dioxide 24.8 mmol/L (20.0-27.5); Chloride 105 mmol/L (96-109); Chol/HDL Ratio 2.83 Ratio; Globulin 2.4 g/dL (1.6-3.3); Glucose 98 mg/dL (70-110); LDL Cholesterol,Calculated 81.8 mg/dL (0.0-131.0); Non-African American GFR(CKD) 74.3 (60.0-200.0); Potassium 4.8 mmol/L (3.5-5.5); Sodium 140 mmol/L (135-145); Total Protein 6.7 g/dL (6.2-8.2)
== END | disposition home or self-care (01) ==
LOC: LABWHC1 12:00
PROVIDERS: ATTEND Internal Medicine Clinical Cardiac Electrophysiology
DX: Z00.01 Encounter for general adult medical examination with abnormal findings (principal)
CPT/HCPCS: 36415; 80053; 80061; 82306; 83036; 83735; 84153; 85027

== ENCOUNTER → 2023-02-07 | Outpatient (CLI) | payer MEDICARE ==
[2023-02-07 20:17] LABS: BUN/Creat Ratio 28.56 Ratio (12.00-20.00); Blood Urea Nitrogen 25.7 mg/dL (9.0-27.0); Calcium 9.4 mg/dL (8.7-10.3); Carbon Dioxide 25.9 mmol/L (21.6-31.8); Chloride 102 mmol/L (96-109); Glucose 90 mg/dL (70-110); Magnesium 2.2 mg/dL (1.5-2.4); Potassium 5.4 mmol/L (3.5-5.5); Sodium 138 mmol/L (135-145)
== END | disposition home or self-care (01) ==
LOC: LABWHC1 13:04
PROVIDERS: ATTEND Internal Medicine Clinical Cardiac Electrophysiology
DX: I48.91 Unspecified atrial fibrillation (principal); Z79.899 Other long term (current) drug therapy
CPT/HCPCS: 36415; 80048; 83735

== ENCOUNTER → 2024-02-13 | Outpatient (CLI) | payer MEDICARE ==
[2024-02-13 11:50] LABS: Blood Urea Nitrogen 29.4 mg/dL (9.0-27.0); Calcium 9.4 mg/dL (8.7-10.3); Carbon Dioxide 23.4 mmol/L (21.6-31.8); Chloride 103 mmol/L (96-109); Glucose 114 mg/dL (70-110); Magnesium 2.1 mg/dL (1.5-2.4); Potassium 4.6 mmol/L (3.5-5.5); Sodium 138 mmol/L (135-145)
== END | disposition home or self-care (01) ==
LOC: LABWHC1 08:01
PROVIDERS: ATTEND Internal Medicine Interventional Cardiology
DX: I48.19 Other persistent atrial fibrillation (principal)
CPT/HCPCS: 36415; 80048; 83735

== ENCOUNTER → 2024-06-04 | Outpatient (CLI) | payer MEDICARE ==
[2024-06-04 17:26] LABS: BUN/Creat Ratio 31.78 Ratio (12.00-20.00); Blood Urea Nitrogen 28.6 mg/dL (9.0-27.0); Calcium 9.4 mg/dL (8.7-10.3); Carbon Dioxide 22.6 mmol/L (21.6-31.8); Chloride 107 mmol/L (96-109); Glucose 119 mg/dL (70-110); Potassium 4.3 mmol/L (3.5-5.5); Sodium 144 mmol/L (135-145)
== END ==
LOC: LABWHC1 10:36
PROVIDERS: ATTEND Nurse Practitioner Adult Health
DX: I48.19 Other persistent atrial fibrillation (principal)
CPT/HCPCS: 36415; 80048; 83735